=== PATIENT | male | born 1955 | race Caucasian/White ===

== ENCOUNTER 2020-08-21 04:04 | Emergency (ER) | payer SELFPAY ==
[2020-08-21] MEDS ORDERED: predniSONE 20 MG TAB ONE (04:54)
[2020-08-21] MEDS ORDERED: Azithromycin 250 MG TAB ONE (04:54)
--- NOTE | 2020-08-21 07:37 | RAD ---
PORTABLE CHEST: DATE: 08/21/2020. FINDINGS: An AP portable film at 0437 is compared with a 04/15/2017 study. The heart is normal in size. There is no vascular congestion or edema. No major lobar infiltrate or effusion was seen. Currently, I cannot diagnose any infiltrates with certainty. If the patient marleny uld continue to have symptoms, a follow-up study may be needed in a few days. IMPRESSION: No definite acute finding. POS: HOME
[2020-08-21 17:03] LABS: SARS-CoV-2 PCR by NAA Not Detected (NotDetected)
== END 2020-08-21 05:25 | disposition home or self-care (01) ==
LOC: BURERS 04:04
DX: J06.9 Acute upper respiratory infection, unspecified (principal); Z20.822 Contact with and (suspected) exposure to COVID-19; E66.9 Obesity, unspecified; E78.5 Hyperlipidemia, unspecified; J44.9 Chronic obstructive pulmonary disease, unspecified; M10.9 Gout, unspecified; Z87.09 Personal history of other diseases of the respiratory system; Z79.899 Other long term (current) drug therapy
CPT/HCPCS: 71045; 87635; 87804; J7512; J7620; U0003; U0005

== ENCOUNTER 2020-08-27 15:17 | Emergency (ER) | payer SELFPAY ==
[2020-08-27 15:47] LABS: #Basophils 0.2 thou/uL (0.0-0.2); #Eosinphils 0.3 thou/uL (0.0-0.7); #Lymphocytes 4.8 thou/uL (1.20-3.40); #Monocytes 0.5 thou/uL (0.11-0.59); #Neutrophils 5.4 thou/uL (1.40-6.50); %Basophils 1.5 % (0.0-1.0); %Eosinophils 2.5 % (0.0-10.0); %Lymphocytes 43.2 % (21.0-51.0); %Neutrophils 48.9 % (42.0-75.0); Hemoglobin 15.9 g/dL (14.0-18.0); Mean Corpuscular HGB CONC 32.7 g/dL (32.0-36.0); Mean Corpuscular Hemoglobin 32.8 pg (27.0-31.0); Mean Platelet Volume 9.7 fL (7.4-10.4); Platelet Count 179 thou/uL (130-400); RBC Distribution Width 12.6 % (11.5-14.5); Red Blood Cell (RBC) Count 4.84 mill/uL (4.70-6.10); White Blood Cell (WBC) Count 11.1 thou/uL (4.8-10.8)
[2020-08-27 16:03] LABS: ALT (SGPT) 82 U/L (8-55); AST (SGOT) 74 U/L (5-34); Albumin 3.8 g/dL (3.4-4.8); Alkaline Phosphatase 74 U/L (40-110); Anion Gap 17 mmol/L (10-20); BUN (Urea Nitrogen) 26 mg/dL (8.4-25.7); Bilirubin, Total 0.5 mg/dL (0.2-1.2); Calc. Creatinine Clearance 0 mL/min (70-130); Carbon Dioxide 24 mmol/L (23-31); Chloride 98 mmol/L (98-107); Globulin 3.3 g/dL (2.4-3.5); Glucose 312 mg/dL (80-115); Lipase 130 U/L (8-78); Protein, Total 7.1 g/dL (5.8-8.1); Sodium 135 mmol/L (136-145)
--- NOTE | 2020-08-27 17:27 | RAD ---
CHEST TWO VIEWS: 08/27/20 COMPARISON: 08/21/2020 FINDINGS: There has been no adverse interval change. The heart is normal in size. No major lobar infiltrate or effusion is seen. Some minor basilar streaking is probably a combination of atelectasis or scarring. A definite acute infiltrate is not evident at this time. IMPRESSION: No definite acute finding. POS: HOME
[2020-08-27 20:17] LABS: SARS-CoV-2 NAA Rapid Test Not Detected (NotDetected)
== END 2020-08-27 16:30 | disposition home or self-care (01) ==
LOC: BURERS 15:17
DX: J44.1 Chronic obstructive pulmonary disease with (acute) exacerbation (principal); R74.8 Abnormal levels of other serum enzymes; E11.9 Type 2 diabetes mellitus without complications; E66.9 Obesity, unspecified; E78.5 Hyperlipidemia, unspecified; E78.00 Pure hypercholesterolemia, unspecified; M10.9 Gout, unspecified
CPT/HCPCS: 0240U; 71046; 80053; 83690; 83880; 84484; 85025; 93005; 94760; J7620

== ENCOUNTER 2021-10-14 21:36 | Emergency (ER) | payer OTHER, SELFPAY ==
[2021-10-14] MEDS ORDERED: Ibuprofen 800 MG TAB ONE (22:07)
== END 2021-10-14 23:20 | disposition home or self-care (01) ==
LOC: BURERS 21:36
DX: S13.4XXA Sprain of ligaments of cervical spine, initial encounter (principal); S40.011A Contusion of right shoulder, initial encounter; S30.810A Abrasion of lower back and pelvis, initial encounter; M47.892 Other spondylosis, cervical region; E78.2 Mixed hyperlipidemia; M10.9 Gout, unspecified; J44.9 Chronic obstructive pulmonary disease, unspecified; V89.2XXA Person injured in unspecified motor-vehicle accident, traffic, initial encounter
CPT/HCPCS: 70450; 72125

== ENCOUNTER 2022-11-27 14:09 | Emergency (ER) | payer OTHER, MEDICAID ==
[2022-11-27] MEDS ORDERED: Ipratropium/Albuterol 3 ML NEB ONE ×2 (14:28→14:44)
[2022-11-27] MEDS ORDERED: methylPREDNISolone Sod Succ/PF 125 MG/2 ML VIAL ONE ×2 (14:28→14:30)
[2022-11-27 14:37] LABS: #Basophils 0.1 thou/uL (0.0-0.2); #Eosinphils 0.1 thou/uL (0.0-0.7); #Lymphocytes 3.2 thou/uL (1.20-3.40); #Monocytes 0.9 thou/uL (0.11-0.59); #Neutrophils 6.9 thou/uL (1.40-6.50); %Basophils 0.9 % (0.0-1.0); %Eosinophils 0.8 % (0.0-10.0); %Lymphocytes 28.4 % (21.0-51.0); %Monocytes 8.3 % (0.0-10.0); %Neutrophils 61.7 % (42.0-75.0); Hemoglobin 12.7 g/dL (14.0-18.0); Mean Corpuscular HGB CONC 32.4 g/dL (32.0-36.0); Mean Corpuscular Hemoglobin 30.3 pg (27.0-31.0); Mean Corpuscular Volume 93.7 fl (78.0-98.0); Mean Platelet Volume 8.4 fL (7.4-10.4); Platelet Count 184 10x3/uL (130-400); RBC Distribution Width 14.4 % (11.5-14.5); Red Blood Cell (RBC) Count 4.17 mill/uL (4.70-6.10); White Blood Cell (WBC) Count 11.3 10x3/uL (4.8-10.8)
[2022-11-27] MEDS ORDERED: Ipratropium/Albuterol 3 ML NEB NEB SCH (14:45)
[2022-11-27 14:55] LABS: ALT (SGPT) 27 U/L (8-55); AST (SGOT) 22 U/L (5-34); Albumin 3.8 g/dL (3.4-4.8); Alkaline Phosphatase 55 U/L (40-110); Anion Gap 12 mmol/L (10-20); BUN (Urea Nitrogen) 17 mg/dL (8.4-25.7); Bilirubin, Total 0.3 mg/dL (0.2-1.2); Calc. Creatinine Clearance 0 mL/min (70-130); Calcium 8.7 mg/dL (7.8-10.44); Carbon Dioxide 20 mmol/L (23-31); Chloride 110 mmol/L (98-107); Estimated GFR 67; Globulin 3.4 g/dL (2.4-3.5); Glucose 177 mg/dL (80-115); Potassium 4.2 mmol/L (3.5-5.1); Protein, Total 7.2 g/dL (5.8-8.1); Sodium 138 mmol/L (136-145)
== END 2022-11-27 15:32 | disposition home or self-care (01) ==
LOC: BURERS 14:09
DX: J44.9 Chronic obstructive pulmonary disease, unspecified (principal); E78.00 Pure hypercholesterolemia, unspecified; E11.9 Type 2 diabetes mellitus without complications
CPT/HCPCS: 36415; 71045; 80053; 83880; 84484; 85025; 93005; 94760; 96374; J2930; J7620

== ENCOUNTER → 2023-07-26 | Day surgery (SDC) | payer MEDICARE, MEDICAID ==
[2023-07-26 13:50] VITALS: BP 144/78; TEMP 97.7
[2023-07-26 14:31] LABS: #Basophils 0.1 thou/uL (0.0-0.2); #Eosinphils 0.4 thou/uL (0.0-0.7); #Lymphocytes 2.7 thou/uL (1.20-3.40); #Monocytes 0.7 thou/uL (0.11-0.59); #Neutrophils 2.6 thou/uL (1.40-6.50); %Basophils 1.5 % (0.0-1.0); %Eosinophils 5.7 % (0.0-10.0); %Lymphocytes 42.2 % (21.0-51.0); %Monocytes 10.5 % (0.0-10.0); %Neutrophils 40.1 % (42.0-75.0); Hematocrit 43.4 % (42.0-52.0); Mean Corpuscular HGB CONC 32.2 g/dL (32.0-36.0); Mean Corpuscular Hemoglobin 29.4 pg (27.0-31.0); Mean Corpuscular Volume 91.3 fl (78.0-98.0); Mean Platelet Volume 8.8 fL (7.4-10.4); Platelet Count 243 10x3/uL (130-400); RBC Distribution Width 14.4 % (11.5-14.5); Red Blood Cell (RBC) Count 4.75 mill/uL (4.70-6.10); White Blood Cell (WBC) Count 6.4 10x3/uL (4.8-10.8)
[2023-07-26 15:08] LABS: ALT (SGPT) 33 U/L (8-55); AST (SGOT) 36 U/L (5-34); Albumin 4.3 g/dL (3.4-4.8); Alkaline Phosphatase 59 U/L (40-110); Anion Gap 17 mmol/L (10-20); BUN (Urea Nitrogen) 17 mg/dL (8.4-25.7); Bilirubin, Total 0.3 mg/dL (0.2-1.2); CRP (Inflammatory) 0.51 mg/dL (= or < 0.5); Calc. Creatinine Clearance 0 mL/min (70-130); Carbon Dioxide 23 mmol/L (23-31); Chloride 103 mmol/L (98-107); Estimated GFR 61; Globulin 3.9 g/dL (2.4-3.5); Glucose 101 mg/dL (80-115); Potassium 4.2 mmol/L (3.5-5.1); Protein, Total 8.2 g/dL (5.8-8.1); Sodium 139 mmol/L (136-145)
== END ==
LOC: BUR/OP 07-24 10:32
PROVIDERS: ATTEND Family Medicine
DX: M86.8X7 Other osteomyelitis, ankle and foot (principal)
CPT/HCPCS: 80053; 85025; 86140

== ENCOUNTER → 2023-08-02 | Day surgery (SDC) | payer MEDICARE, MEDICAID ==
[2023-08-02 16:32] LABS: ALT (SGPT) 41 U/L (8-55); AST (SGOT) 73 U/L (5-34); Albumin 4.2 g/dL (3.4-4.8); Alkaline Phosphatase 59 U/L (40-110); Anion Gap 16 mmol/L (10-20); BUN (Urea Nitrogen) 10 mg/dL (8.4-25.7); Bilirubin, Total 0.3 mg/dL (0.2-1.2); CRP (Inflammatory) 1.31 mg/dL (= or < 0.5); Calc. Creatinine Clearance 0 mL/min (70-130); Calcium 9.8 mg/dL (7.8-10.44); Carbon Dioxide 24 mmol/L (23-31); Chloride 103 mmol/L (98-107); Estimated GFR 88; Globulin 4.2 g/dL (2.4-3.5); Glucose 82 mg/dL (80-115); Potassium 4.4 mmol/L (3.5-5.1); Protein, Total 8.4 g/dL (5.8-8.1); Sodium 139 mmol/L (136-145)
[2023-08-02 16:43] LABS: Hemoglobin 14.8 g/dL (14.0-18.0); Mean Corpuscular HGB CONC 32.8 g/dL (32.0-36.0); Mean Corpuscular Hemoglobin 29.2 pg (27.0-31.0); Mean Corpuscular Volume 89.2 fl (78.0-98.0); Mean Platelet Volume 9.1 fL (7.4-10.4); Platelet Count 134 10x3/uL (130-400); RBC Distribution Width 13.7 % (11.5-14.5); Red Blood Cell (RBC) Count 5.05 mill/uL (4.70-6.10); White Blood Cell (WBC) Count 2.8 10x3/uL (4.8-10.8)
[2023-08-02 19:14] LABS: Band 5 % (5-11); Eosinophils 4 % (0-10); Lymphocytes 40 % (21-51); MDiff Complete? YES; Monocytes 15 % (0-10); Neutrophil 36 % (42-75); Platelet Adequacy Comment Appears Adequate
== END ==
LOC: BUR/OP 14:39
PROVIDERS: ATTEND Family Medicine
DX: M86.8X7 Other osteomyelitis, ankle and foot (principal)
CPT/HCPCS: 36415; 80053; 85025; 86140

== ENCOUNTER → 2023-08-09 | Day surgery (SDC) | payer MEDICARE, MEDICAID ==
[2023-08-09 12:26] LABS: #Basophils 0.1 thou/uL (0.0-0.2); #Eosinphils 0.1 thou/uL (0.0-0.7); #Lymphocytes 1.5 thou/uL (1.20-3.40); #Monocytes 0.8 thou/uL (0.11-0.59); #Neutrophils 6.2 thou/uL (1.40-6.50); %Basophils 1.6 % (0.0-1.0); %Eosinophils 1.3 % (0.0-10.0); %Monocytes 9.1 % (0.0-10.0); %Neutrophils 71.1 % (42.0-75.0); Hematocrit 47.9 % (42.0-52.0); Hemoglobin 15.6 g/dL (14.0-18.0); Mean Corpuscular HGB CONC 32.5 g/dL (32.0-36.0); Mean Corpuscular Hemoglobin 29.2 pg (27.0-31.0); Mean Corpuscular Volume 89.8 fl (78.0-98.0); Mean Platelet Volume 7.9 fL (7.4-10.4); Platelet Count 301 10x3/uL (130-400); RBC Distribution Width 14.1 % (11.5-14.5); Red Blood Cell (RBC) Count 5.34 mill/uL (4.70-6.10); White Blood Cell (WBC) Count 8.7 10x3/uL (4.8-10.8)
[2023-08-09 13:05] LABS: ALT (SGPT) 112 U/L (8-55); AST (SGOT) 110 U/L (5-34); Albumin 4.3 g/dL (3.4-4.8); Alkaline Phosphatase 86 U/L (40-110); Anion Gap 16 mmol/L (10-20); BUN (Urea Nitrogen) 16 mg/dL (8.4-25.7); Bilirubin, Total 0.5 mg/dL (0.2-1.2); CRP (Inflammatory) Less than 0.50 mg/dL (= or < 0.5); Calc. Creatinine Clearance 0 mL/min (70-130); Calcium 9.8 mg/dL (7.8-10.44); Carbon Dioxide 22 mmol/L (23-31); Chloride 106 mmol/L (98-107); Estimated GFR 58; Globulin 3.7 g/dL (2.4-3.5); Glucose 196 mg/dL (80-115); Potassium 4.7 mmol/L (3.5-5.1); Sodium 139 mmol/L (136-145)
[2023-08-09 14:43] VITALS: BP 116/73; TEMP 97.7
== END ==
LOC: BUR/OP 11:54
PROVIDERS: ATTEND Family Medicine
DX: M86.8X7 Other osteomyelitis, ankle and foot (principal)
CPT/HCPCS: 36415; 80053; 85025; 86140

== ENCOUNTER 2024-04-29 11:23 | Emergency (ER) | payer MEDICARE, MEDICAID ==
[2024-04-29] MEDS ORDERED: Ipratropium/Albuterol 3 ML NEB ONE (12:23)
== END 2024-04-29 13:03 | disposition home or self-care (01) ==
LOC: BURERS 11:23
DX: B34.9 Viral infection, unspecified (principal); I12.9 Hypertensive chronic kidney disease with stage 1 through stage 4 chronic kidney disease, or unspecified chronic kidney disease; E11.22 Type 2 diabetes mellitus with diabetic chronic kidney disease; N18.9 Chronic kidney disease, unspecified
CPT/HCPCS: 71045; J7620

== ENCOUNTER 2025-07-02 07:00 | Emergency (ER) | payer OTHER, MEDICAID ==
[2025-07-02] MEDS ORDERED: Ondansetron PF 4 MG/2 ML Vial ONE (07:26)
[2025-07-02] MEDS ORDERED: Ketorolac Tromethamine 30 MG (1 mL) VIAL ONE (07:26)
[2025-07-02 07:38] LABS: #Basophils 0.1 thou/uL (0.0-0.2); #Eosinophils 0.6 thou/uL (0.0-0.7); #Lymphocytes 3.0 thou/uL (1.20-3.40); #Monocytes 1.0 thou/uL (0.11-0.59); #Neutrophils 6.9 thou/uL (1.40-6.50); %Basophils 0.7 % (0.0-1.0); %Eosinophils 5.2 % (0.0-10.0); %Lymphocytes 26.3 % (21.0-51.0); %Monocytes 8.5 % (0.0-10.0); %Neutrophils 59.3 % (42.0-75.0); Hematocrit 60.0 % (42.0-52.0); Hemoglobin 18.8 g/dL (14.0-18.0); Mean Corpuscular Hemoglobin 30.7 pg (27.0-31.0); Mean Corpuscular Volume 98.1 fl (78.0-98.0); Platelet Count 303 10x3/uL (130-400); Red Blood Cell (RBC) Count 6.11 mill/uL (4.70-6.10); White Blood Cell (WBC) Count 11.5 10x3/uL (4.8-10.8)
[2025-07-02 07:54] LABS: ALT (SGPT) 31 U/L (Less than 45); AST (SGOT) 36 U/L (11-34); Albumin 4.8 g/dL (3.1-4.5); Alkaline Phosphatase 68 U/L (40-110); Anion Gap 20 mmol/L (10-20); BUN (Urea Nitrogen) 24 mg/dL (8.4-25.7); Bilirubin, Total 1.0 mg/dL (0.3-1.2); Calc. Creatinine Clearance 0 mL/min (70-130); Calcium 10.4 mg/dL (7.8-10.44); Carbon Dioxide 20 mmol/L (23-31); Chloride 103 mmol/L (98-107); Globulin 3.8 g/dL (2.4-3.5); Glucose 146 mg/dL (80-115); Lipase 52 U/L (8-78); Potassium 4.1 mmol/L (3.5-5.1); Sodium 139 mmol/L (136-145)
[2025-07-02 09:20] LABS: Glucose, Urine (Dipstick) 500 mg/dL (Negative); Leukocyte Negative (Negative); Protein, Urine (Dipstick) Negative (Neg-Trace); Specific Gravity, Urine 1.015 (1.005-1.030)
[2025-07-02 09:25] LABS: Bacteria/HPF None Seen HPF (None Seen); CAUTI Indications for Culture Pelvic or flank pain; RBC/HPF None Seen HPF (0-3); WBC/HPF None Seen HPF (0-3)
[2025-07-02 09:26] LABS: Urine Culture Reflex No No
== END 2025-07-02 09:40 | disposition home or self-care (01) ==
LOC: BURERS 07:00
DX: K55.049 Acute infarction of large intestine, extent unspecified (principal); R19.7 Diarrhea, unspecified; E11.22 Type 2 diabetes mellitus with diabetic chronic kidney disease; N18.9 Chronic kidney disease, unspecified; Z79.85 Long-term (current) use of injectable non-insulin antidiabetic drugs
CPT/HCPCS: 74177; 80053; 81001; 83690; 85025; J1885; J2405; 36415; 96361; 96374; 96375